=== PATIENT | male | born 1970 | race Caucasian/White ===

== ENCOUNTER 2020-04-22 11:59 | Emergency (ER) | payer OTHER, SELFPAY ==
[2020-04-22 12:10] VITALS: BP 128/74; PULSE 57; RESP 16; TEMP 36.4; O2SAT 100
--- NOTE | 2020-04-22 12:22 | ED.GENADULT ---
HPI - General Adult General Chief complaint: Skin/Abscess/Foreign Body Stated complaint: poison noemi Time Seen by Provider: 04/22/20 12:22 Source: patient and RN notes reviewed Mode of arrival: ambulatory Limitations: no limitations History of Present Illness HPI narrative: 49-year-old male presents with complaints of diffused raised, red, itching, and burning rash for the past 2 days. Aroldo says he was outside cutting grass, cutting down bushes, and pulling weeds in his yard on Sunday04/20/20. Denies new detergent, personal hygiene products, or laundry detergent. No new foods or medications. No swelling, bleeding, or drainage. Denies fever or chills, headaches, weakness, fatigue, malagia, facial swelling, or tongue swelling. Denies chest pain or dyspnea. The patient reports they have not been diagnosed with COVID-19. The patient reports they are not waiting for the results of a COVID-19 lab test. The patient reports they do not have fever, chills, weakness, fatigue, myalgia, or facial swelling. The patient reports they do not have a new or worsening cough or shortness of breath. Denies chest pain. The patient reports they do not have any rhinorrhea, congestion, sore throat, nausea, vomiting, abdominal pain, and diarrhea. Tolerating po intake well. Denies recent traveling. Denies concerns for COVID-19 or exposures been home since [id number] order except for essential household needs, working, and return home. At this time, patient is not suspected of having COVID-19. Some parts of this dictation were generated by voice recognition software and may contain typographical and/or grammatical inaccuracies. Related Data Home Medications Medication Instructions Recorded Confirmed atorvastatin 20 mg PO DAILY 04/22/20 04/22/20 Allergies Allergy/AdvReac Type Severity Reaction Status Date / Time No Known Allergies Allergy Verified 04/22/20 12:15 Review of Systems Review of Systems: Narrative: CONSTITUTIONAL: Denies fever, chills, sweats. EYES: Denies visual changes, redness, discharge. ENT: Denies rhinorrhea, congestion, sore throat, otalgia. CARDIOVASCULAR: Denies chest pain, palpitations, edema. RESPIRATORY: Denies dyspnea, wheezing, cough. GASTROINTESTINAL: Denies abdominal pain, nausea, vomiting, diarrhea. GENITOURINARY: Denies dysuria, hematuria, abnormal discharge. SKIN: Complains of diffused raised, red, itching, and burning rash. Denies drainage. MUSCULOSKELETAL: Denies acute back pain, joint pain, or myalgia. NEUROLOGIC: Denies numbness or focal weakness. PSYCHIATRIC: Denies anxiety or depression. All other systems reviewed are negative, except as documented in HPI. PMFSH Past Medical History Medical History (Updated 04/22/20 @ 12:58 by RADHA Aviles) Hypercholesteremia Surgical History Surgical History (Updated 04/22/20 @ 12:58 by RADHA Aviles) No significant past surgical history Family History Family History (Updated 04/22/20 @ 12:58 by RADHA Aviles) Father Hypercholesteremia Mother Hypercholesteremia Social History Social History (Updated 04/22/20 @ 13:00 by RADHA Aviles) Smoking status: Light tobacco smoker Tobacco type: cigars Second hand tobacco smoke exposure: No Alcohol intake: current Substance use: current Substance use type: marijuana Living arrangements: with family Occupation/Education: occupation Gender identity (if verbalized by the patient): Male Comments At time of signature, agree with nurse past medical, surgical, social, and family history. There is no relevant family history pertinent to the presenting complaint. Exam Narrative: Exam Narrative: GENERAL: This is a well-nourished, well-developed patient, in no apparent distress. Talks in full sentences and ambulates with steady gait without dyspnea. HEAD: normocephalic, atraumatic. EYES: PERRL. Sclera clear/white. Vision is grossly intact.
[2020-04-22] MEDS: methylPREDNISolone SOD SUCC 125 MG VIAL IM (12:36)
== END 2020-04-22 12:52 | disposition home or self-care (01) ==
PROVIDERS: Emergency Provider Nurse Practitioner Family; PCP Internal Medicine
DX: L23.7 Allergic contact dermatitis due to plants, except food (principal); E78.00 Pure hypercholesterolemia, unspecified; F17.290 Nicotine dependence, other tobacco product, uncomplicated
CPT/HCPCS: 96372; 99203; G0463; J2930

== ENCOUNTER 2020-06-28 12:54 | Emergency (ER) | payer OTHER, SELFPAY ==
[2020-06-28 13:12] VITALS: BP 123/76; PULSE 69; RESP 18; TEMP 36.6; O2SAT 100
--- NOTE | 2020-06-28 14:34 | ED.EAR ---
HPI - Ear Problem General Chief complaint: Ear Stated complaint: Ear pain Time Seen by Provider: 06/28/20 14:34 Source: patient Mode of arrival: ambulatory Limitations: no limitations History of Present Illness HPI Narrative: Soraya Mix is a 49 yo male with a PMH of high cholesterol who comes to express care with R ear pain x 6 days. Swims on a regular basis. States ear is draining, tender, pain is now 7/10 Related Data Home Medications Medication Instructions Recorded Confirmed atorvastatin 20 mg PO DAILY 04/22/20 06/28/20 Allergies Allergy/AdvReac Type Severity Reaction Status Date / Time No Known Allergies Allergy Verified 06/28/20 13:41 Review of Systems Review of Systems: Narrative: CONSTITUTIONAL: Denies fever, chills, sweats. EYES: Denies visual changes, redness, discharge. ENT: rhinorrhea, congestion, sore throat, R otalgia.Has pain outside ear and lump lower R jaw CARDIOVASCULAR: Denies chest pain, palpitations, edema. RESPIRATORY: Denies dyspnea, wheezing, cough GASTROINTESTINAL: Denies abdominal pain, nausea, vomiting, diarrhea. GENITOURINARY: Denies dysuria, hematuria, abnormal discharge SKIN: Denies rash or itching. NEUROLOGIC: Denies numbness, or focal weakness. PSYCHIATRIC: Denies anxiety or depression. PMFSH Past Medical History Medical History (Updated 06/28/20 @ 14:59 by Temi Hoff CNP) Hypercholesteremia Surgical History Surgical History No significant past surgical history Family History Family History Father Hypercholesteremia Mother Hypercholesteremia Social History Social History Smoking status: Light tobacco smoker Tobacco type: cigars Second hand tobacco smoke exposure: No Alcohol intake: current Substance use: current Substance use type: marijuana Gender identity (if verbalized by the patient): Male Comments At time of signature, I agree with nursing past medical, surgical, social and family history. There is no relevant family history pertinent to the presenting complaint. Exam Narrative: Exam Narrative: GENERAL: This is a well-nourished, well-developed patient, in mild distress. HEAD: normocephalic, atraumatic. EYES:Sclera clear/white. Vision is grossly intact. EARS: External ears normal, auditory canals clear and without drainage on L, On R- external and internal ear canal edema with tenderness and drainage TMs normal without perforation. Hearing grossly intact. NOSE: External nose normal without nasal discharge, nares without redness, no rhinorrhea. THROAT: Mucous membranes moist, posterior pharynx erythema_ enlarged tender submandibuar LN NECK: Neck supple, tender on right CARDIOVASCULAR: Regular rate and rhythm without murmurs, gallops, or rubs. RESPIRATORY: Clear to auscultation. Breath sounds equal bilaterally. No wheezes, rales, or rhonchi. GASTROINTESTINAL: Abdomen soft, SKIN: warm, intact with no suspicious lesions or rash, good texture and turgor. NEURO: awake, alert, and oriented to person, place and time. There were no obvious focal neurologic abnormalities. Steady gait EXTREMITIES: Normal range of motion. BACK: Nontender without deformity Course Course Emergency Course: Started on polymyxin with hydrocortisone to right ear in addition we will start on Augmentin Discussed use of eardrops and management of infection; should hydrate and complete antibiotics Vital Signs Vital signs: Vital Signs Temperature 97.8 F 06/28/20 13:12 Pulse Rate 69 06/28/20 13:12 Respiratory Rate 18 06/28/20 13:12 Blood Pressure 123/76 06/28/20 13:12 Pulse Oximetry 100 06/28/20 13:12 Temperature 97.8 F 06/28/20 13:12 Pulse Rate 69 06/28/20 13:12 Respiratory Rate 18 06/28/20 13:12 Blood Pressure 123/76 06/28/20 13:12 Pulse Oximetry 100
== END 2020-06-28 15:05 | disposition home or self-care (01) ==
PROVIDERS: Emergency Provider Nurse Practitioner; PCP Internal Medicine
DX: H60.311 Diffuse otitis externa, right ear (principal); F17.290 Nicotine dependence, other tobacco product, uncomplicated
CPT/HCPCS: 99213; G0463

== ENCOUNTER 2022-02-01 08:14 | Outpatient (CLI) | payer OTHER, SELFPAY ==
[2022-02-01 18:32] LABS: Alanine Aminotransferase 53 U/L (4-50); Albumin Level 4.2 g/dL (3.5-5.1); Alkaline Phosphatase 97 U/L (38-126); Aspartate Amino Transferase 45 U/L (17-59); Bilirubin,Total 0.8 mg/dL (0.2-1.3)
== END 2022-02-01 08:15 | disposition home or self-care (01) ==
PROVIDERS: PCP Family Medicine; Visit Provider Family Medicine
DX: E78.00 Pure hypercholesterolemia, unspecified (principal)
CPT/HCPCS: 36415; 80076

== ENCOUNTER 2022-10-16 07:31 | Outpatient (CLI) | payer OTHER, SELFPAY ==
[2022-10-16 18:50] LABS: Basophils Absolute Auto 0.1 K/mm3 (0.0-0.1); Eosinophils Absolute Auto 0.1 K/mm3 (0-0.3); Eosinophils Percent Auto 1.3 % (0-4.4); Hematocrit 44.5 % (42.0-52.0); Hemoglobin 15.4 g/dL (14.0-18.0); Immature Granulocyte Absolute 0.03 K/mm3 (0.00-0.031); Immature Granulocyte Percent A 0.4 % (0-0.5); Lymphocytes Absolute Auto 2.58 K/mm3 (0.9-3.2); Lymphocytes Percent Auto 36.5 % (18.3-44.2); Mean Corpuscular HGB Conc 34.6 g/dl (32-36); Mean Corpuscular Hemoglobin 31.4 pg (26-34); Mean Corpuscular Volume 90.6 fl (80-100); Mean Platelet Volume 11.5 fl (7.4-10.4); Monocytes Absolute Auto 0.6 K/mm3 (0.1-0.6); Monocytes Percent Auto 8.5 % (2.6-8.5); Neutrophils Absolute Auto 3.7 K/mm3 (1.3-6.7); Neutrophils Percent Auto 52.3 % (45.5-73.1); Platelet Count Result 212 k/mm3 (150-375); Red Blood Count 4.91 M/mm3 (4.6-6.20); Red Cell Distribution Width 12.8 % (11.5-14.5); White Blood Count 7.1 K/mm3 (4.5-10.0)
[2022-10-16 18:52] LABS: Alanine Aminotransferase 61 U/L (6-50); Albumin Level 4.4 g/dL (3.5-5.1); Alkaline Phosphatase 109 U/L (38-126); Anion Gap 9 mmol/L (8-16); Aspartate Amino Transferase 67 U/L (17-59); Bilirubin,Total 0.9 mg/dL (0.2-1.3); Blood Urea Nitrogen 10 mg/dL (9-20); Calcium 9.1 mg/dL (8.4-10.2); Carbon Dioxide 24 mmol/L (22-30); Chloride 104 mmol/L (98-107); Cholesterol 179 mg/dL (0-200); Estimated Glomerular Filt Rate > 60; Glucose 89 mg/dL (65-110); HDL Direct 46 mg/dL; Potassium 4.1 mmol/L (3.4-5.0); Sodium 137 mmol/L (137-145); Triglycerides 111 mg/dL (<150)
[2022-10-16 19:04] LABS: LDL Cholesterol Direct 98 mg/dL
[2022-10-16 19:23] LABS: Prostate Specific Antigen 0.7 ng/mL (< OR = 4.0)
[2022-10-16 19:34] LABS: Hepatitis B Surface Antigen Negative (Negative)
[2022-10-16 19:40] LABS: HAV RESULT Negative (Negative); Hepatitis B Core IgM Result Negative (Negative)
[2022-10-16 19:51] LABS: Hepatitis C Virus Antibody Negative (Negative)
== END 2022-10-16 07:32 | disposition home or self-care (01) ==
LOC: ANHBWCLAB 07:32
PROVIDERS: PCP Family Medicine; Visit Provider Family Medicine
DX: Z00.00 Encounter for general adult medical examination without abnormal findings (principal); E78.00 Pure hypercholesterolemia, unspecified; R74.01 Elevation of levels of liver transaminase levels
CPT/HCPCS: 36415; 80053; 80061; 80074; 82248; 84153; 85025; G0103